=== PATIENT | male | born 1965 | race Caucasian/White ===

== ENCOUNTER 2020-02-04 17:47 | Outpatient (REF) | payer OTHER, SELFPAY | END 2020-02-04 17:48 | disposition home or self-care (01) | LOC: HO.LAB 17:47 | PROVIDERS: Visit Provider Internal Medicine | DX: Z20.828 Contact with and (suspected) exposure to other viral communicable diseases (principal) | CPT/HCPCS: U0003 ==

== ENCOUNTER 2020-11-24 17:14 | Outpatient (REF) | payer OTHER, SELFPAY ==
--- NOTE | ~2020-11-24 | XR_ITS ---
EXAMINATION: XR CHEST CLINICAL INFORMATION: Chronic cough. Asthma. COMPARISON: None TECHNIQUE: 2 views of the chest were obtained. FINDINGS: The lungs are clear. The cardiomediastinal silhouette is normal in size. There is no pleural effusion or pneumothorax. No acute osseous abnormality. XR/XR chest 2V IMPRESSION: No acute cardiopulmonary findings.
== END 2020-11-24 17:15 | disposition home or self-care (01) ==
LOC: HO.XRAY 17:14
PROVIDERS: PCP Internal Medicine Medical Oncology; Visit Provider Internal Medicine Medical Oncology
DX: R05 Cough (principal); R06.02 Shortness of breath; J45.909 Unspecified asthma, uncomplicated
CPT/HCPCS: 71046

== ENCOUNTER 2020-12-12 15:58 | Outpatient (REF) | payer OTHER, SELFPAY ==
--- NOTE | 2020-12-12 | PFT_ITS ---
INDICATIONS: Shortness of breath and cough. SPIROMETRY: The FEV1 to FVC of 85% with an FEV1 of 2.48 L, which is 74% predicted, and an FVC of 2.91 L, which is 67% predicted. No significant response to bronchodilators noted. Maximum voluntary ventilation 93% predicted. LUNG VOLUMES: Total lung capacity 67% predicted with an expiratory reserve volume of 34% predicted. DIFFUSION CAPACITY: DLCO 46% predicted. COMPARISONS: None. Post test, the patient did perform maneuvers with optimal efforts. He did have some difficulties with the maneuvers and some did not meet ATS criteria but still acceptable. IMPRESSION: No obstructive ventilatory defects identified. No significant response to bronchodilators noted. Normal maximum voluntary ventilation. However, the patient does have a mild restrictive ventilatory defect of unclear etiology. Need to consider underlying parenchymal lung conditions. In addition to that, there is a severe diffusion impairment, which could be secondary to underlying parenchymal lung conditions and/or pulmonary vascular conditions should be considered. Pulmonary consultation would be helpful, otherwise clinical correlation warranted. MD GARCIA Rabago/TYSON / [phone]
== END 2020-12-12 15:59 | disposition home or self-care (01) ==
LOC: HO.RESP 15:58
PROVIDERS: PCP Internal Medicine Medical Oncology; Visit Provider Internal Medicine Medical Oncology
DX: J45.909 Unspecified asthma, uncomplicated (principal)
CPT/HCPCS: 94060; 94727; 94729

== ENCOUNTER 2021-02-27 09:21 | Outpatient (REF) | payer OTHER, SELFPAY ==
[2021-02-27 09:38] LABS: MANUAL DIFF FLAG NO
[2021-02-27 09:47] LABS: Basophils Percent Auto 0.6 % (0-2); Eosinophils Absolute Auto 0.2 X10*3/uL (0.0-0.4); Eosinophils Percent Auto 2.9 % (0-4); Hemoglobin 15.9 g/dl (14.0-18.0); Imm Gran Abs Auto 0.02 X10*3/uL (0.00-0.03); Imm Gran Pct Auto 0.4 % (0.0-0.4); Lymphocytes Absolute Auto 1.3 X10*3/uL (1.2-4.9); Lymphocytes Percent Auto 24.5 % (20-40); Mean Corpuscular HGB Conc 33.8 g/dl (31.0-36.0); Mean Corpuscular Hemoglobin 30.4 pg (27.0-33.0); Mean Corpuscular Volume 89.9 fL (80.0-98.0); Mean Platelet Volume 8.5 fL (9.4-12.4); Monocytes Absolute Auto 0.5 X10*3/uL (0.1-1.2); Monocytes Percent Auto 9.8 % (2-11); Neutrophils Absolute Auto 3.4 x10*3/uL (2.0-8.3); Neutrophils Percent Auto 61.8 % (45-73); Platelet Count 208 X10*3/uL (160-400); Red Blood Count 5.23 X10*6/uL (4.60-5.80); Red Cell Distribution Width 12.3 % (11.0-16.0); White Blood Count 5.4 X10*3/uL (4.8-10.8)
[2021-02-27 10:28] LABS: Alanine Aminotransferase 34 U/L (0-40); Albumin Level 4.2 g/dL (3.5-5.0); Alkaline Phosphatase 47 U/L (39-117); Anion Gap 9 (12-20); Aspartate Amino Transferase 24 U/L (5-37); Bilirubin Total 0.5 mg/dL (0.0-1.0); Blood Urea Nitrogen 15 mg/dL (9-16); Carbon Dioxide 29 mmol/L (22-29); Chloride 103 mmol/L (96-108); Cholesterol 178 mg/dL; Estimated Glomerular Filt Rate > 60; Glucose Fasting 99 mg/dL (60-99); HDL Cholesterol 45 mg/dL; LDL Cholesterol Calculated 107 mg/dl; Potassium 4.8 mmol/L (3.3-5.1); Sodium 136 mmol/L (135-145); Total Protein 7.2 g/dL (6.5-8.0); Triglycerides 134 mg/dL
== END 2021-02-27 09:22 | disposition home or self-care (01) ==
LOC: HO.LAB 09:21
PROVIDERS: PCP Internal Medicine Medical Oncology; Visit Provider Internal Medicine Medical Oncology
DX: Z00.00 Encounter for general adult medical examination without abnormal findings (principal); E66.3 Overweight; N40.0 Benign prostatic hyperplasia without lower urinary tract symptoms
CPT/HCPCS: 36415; 80053; 80061; 85025

== ENCOUNTER → 2021-03-06 16:06 | Outpatient (BNVA) | payer OTHER, SELFPAY | PROVIDERS: PCP Internal Medicine Medical Oncology; Visit Provider Internal Medicine Pulmonary Disease ==

== ENCOUNTER 2021-03-19 14:48 | Outpatient (REF) | payer OTHER, SELFPAY ==
--- NOTE | ~2021-03-19 | CT_ITS ---
EXAMINATION: CT CHEST WITHOUT CONTRAST CLINICAL INFORMATION: Interstitial pulmonary disease COMPARISON: None TECHNIQUE: Multidetector volumetric CT imaging of the chest was done. Axial MIP volume rendering provided. Sagittal and coronal reformatted images were obtained. This CT examination was performed using dose optimization techniques as appropriate, variously including the following: *Automated exposure control *Adjustment of mA and/or kV according to patient size (this includes techniques or standardized protocols for targeted exams where dose is matched to indication/reason for exam; i.e. extremities or head) *Use of iterative reconstruction technique DLP: 179 mGy-cm FINDINGS: LOCK EXPERT: Unremarkable. LUNGS: The lungs are well expanded and clear of acute pneumonic process. There are punctate 1 mm calcified nodules, likely granulomas, scattered in bilateral upper lobe, lingula and left lower lobe. Mild atelectatic changes are seen left lower lobe. There is no bronchiectasis or bronchial wall thickening. No consolidation or mass seen. MEDIASTINUM: The thyroid lobes are symmetric and normal. The central trachea and the bronchi are widely patent. Heart size and the great vessels are normal caliber. There is no pericardial effusion seen. No abnormal lymph nodes seen either. PLEURA: There is no pleural effusion. No pleural mass or thickening. AXILLA: There are small shotty lymph nodes seen in the axilla. The chest wall appears unremarkable. UPPER ABDOMEN: There are at least 2 hypodense lesions in the left hepatic lobe largest lesion measuring 1.20 x 0.40 cm. The right hepatic lobe appears unremarkable. Visualized spleen, gallbladder and bilateral adrenal glands are unremarkable. OSSEOUS STRUCTURES: There is mild ventral spondylosis upper and lower dorsal spine. No lytic or sclerotic process seen. CT/CT chest wo con IMPRESSION: Multiple small calcified nodules throughout both lungs likely calcified granuloma. Minimal atelectatic changes left lung base. No interstitial lung disease visualized. No consolidation. No abnormal lymphadenopathy. Small hypodense left hepatic lobe lesions, too small to characterize.
== END 2021-03-19 14:49 | disposition home or self-care (01) ==
LOC: HO.CT 14:48
PROVIDERS: PCP Internal Medicine Medical Oncology; Visit Provider Internal Medicine Pulmonary Disease
DX: J84.9 Interstitial pulmonary disease, unspecified (principal)
CPT/HCPCS: 71250

== ENCOUNTER → 2021-04-19 10:19 | Outpatient (BNVA) | payer OTHER, SELFPAY | PROVIDERS: PCP Internal Medicine Medical Oncology; Visit Provider Internal Medicine Pulmonary Disease ==

== ENCOUNTER 2022-03-11 16:26 | Outpatient (REF) | payer OTHER, SELFPAY ==
--- NOTE | ~2022-03-11 | CT_ITS ---
EXAMINATION: CT CHEST WITHOUT CONTRAST CLINICAL INFORMATION: Pulmonary fibrosis. COMPARISON: CT chest 03/19/2021. TECHNIQUE: Multidetector volumetric CT imaging of the chest was done. Axial MIP volume rendering provided. Sagittal and coronal reformatted images were obtained. This CT examination was performed using dose optimization techniques as appropriate, variously including the following: *Automated exposure control *Adjustment of mA and/or kV according to patient size (this includes techniques or standardized protocols for targeted exams where dose is matched to indication/reason for exam; i.e. extremities or head) *Use of iterative reconstruction technique DLP: 176 mGy-cm FINDINGS: HELMET HAT BRIM CUTTER: Unremarkable. LUNGS: The lungs are well expanded and clear of acute pneumonic process. There are scattered 1-2 mm calcified nodules both upper lobes and lower lobes. Faint ground-glass attenuation is seen in the right lower lobe posterobasal and medial segments and left lower lobe posterior segment. The findings are new since the previous study. No acute consolidation seen. MEDIASTINUM: The thyroid lobes are symmetrical and normal. The central trachea and bronchi are widely patent. The heart size and the great vessels are normal caliber. There are small shotty lymph nodes in the pretracheal space. There is no pericardial effusion. CORONARY ARTERY CALCIFICATION: None visualized on this study. PLEURA: There is no pleural effusion. No pleural mass or thickening. AXILLA: Small shotty lymph nodes visualized in the axilla. The chest wall is a unremarkable. UPPER ABDOMEN: There are 2 hypodense lesions in the left hepatic lobe, the largest measuring 1.2 cm, probable cyst or hemangioma. The rest of the liver, spleen, pancreas, and bilateral adrenal glands are unremarkable. There are no radiopaque gallstones. OSSEOUS STRUCTURES: No aggressive lytic or sclerotic process seen. There is mild ventral spondylosis upper and mid dorsal spine. CT/CT chest wo IV con IMPRESSION: 1. Faint ground-glass attenuation in both lower lobes, new since the previous study, nonspecific. No evidence of pulmonary fibrosis on this exam 2. Scattered 1-2 mm calcified nodules are stable. 3. No abnormal mediastinal or axillary lymph nodes seen. 4. Small hypodense lesions left hepatic lobe, likely cyst or hemangioma. Fleischner guidelines were followed.
== END 2022-03-11 16:27 | disposition home or self-care (01) ==
LOC: HO.CT 16:26
PROVIDERS: Visit Provider Internal Medicine Pulmonary Disease
DX: J84.10 Pulmonary fibrosis, unspecified (principal)
CPT/HCPCS: 71250

== ENCOUNTER 2024-02-06 16:58 | Outpatient (REF) | payer OTHER, SELFPAY | END 2024-02-06 16:59 | disposition home or self-care (01) | LOC: HO.LNP 16:58 | PROVIDERS: Visit Provider Internal Medicine Medical Oncology | DX: L03.818 Cellulitis of other sites (principal) | CPT/HCPCS: 87070; 87205 ==

== ENCOUNTER 2024-07-09 14:47 | Outpatient (REF) | payer OTHER, SELFPAY ==
--- OUTSIDE RECORDS SUMMARY | 2024-07-09 17:06 | XMS_ITS ---
Author Organization Christian Acuña III, MD Address [address] [place] [address] Care Team Providers Care Appian Developer Name Role Phone Christian Acuña Primary Care Provider REASON FOR VISIT Colonoscopy Social History Sex Assigned At : Social History Observation Description Sex Assigned At Male Encounters Encounter Location Date Provider Diagnosis Christian Acuña III, MD [address] [place] [address] [place] [address] 06/09/2024 Christian Acuña Plan Of Treatment Next Appt Details Provider Name:Christian Acuña, 07/13/2024 04:15:00 PM, [address] [place] [address] [place], [address], Provider Name:Christian Acuña, 03/09/2025 04:00:00 PM, [address] [place] [address] [place], [address], Progress Notes * Zafar RANDALL RDOB:1964 (59 yo M)Acc No.[id number]:06/09/2024 Patient:?Zafar RANDALL :1965???Age:59 Y???Sex:Male Address:[address] [facility] [place], [address] * * Date:?
--- OUTSIDE RECORDS SUMMARY | 2024-07-09 17:06 | XMS_ITS ---
Author Organization Christian Acuña III, MD Address [address] [address] Care Team Providers Care Showroom Consultant Name Role Phone Christian Acuña Primary Care Provider Allergies Allergen (clinical drug ingredient) Drug/Non Drug Allergy documented on EMR Reaction Allergy Type Onset Date Status No Known Drug Allergy Unknown Drug Allergy Active Results Component Value Reference Range Notes URINE DIP STICK Reviewed date:03/08/2024 04:42:04 PM Interpretation: Performing Lab: Notes/Report: SG 1.015 1.005 - 1.025 pH 6.5 5.0 - 9.0 HOMERO Negative Negative - NIT Negative Negative - PRO 15 Negative - Trace GLU Negative Negative - UBG 0.2 0.1 - 1.8 SUNSHINE Negative 0.2 - 1.3 BLD Negative Negative - REASON FOR VISIT annual exam Medications Medication SIG (Take, Route, Frequency, Duration) Notes Start Date End Date Status Flonase 50 MCG/ACT 1 spray in each nost ril Nasally Once a day Active Albuterol Sulfate HFA 108 (90 Base) MCG/ACT 1 puff as needed Inhalation every 4 hrs Active Sildenafil Citrate 100 MG 1 tablet as ne eded Orally Once a day Active FLUoxetine HCl 20 MG TAKE 2 CAPSULES BY MOUTH EVERY DAY Active traZODone HCl 150 MG TAKE 1 TABLET BY [facility] EVERY DAY AT BEDTIME FOR 30 DAYS Active Social History Tobacco Use: Social History Observation Description Date Details (start date - stop date) Never Smoker NA - NA Sex Assigned At : Social History Observation Description Sex Assigned At Male Tobacco Use/Smoking Question Answer Notes Patient is a nonsmoker Additional Findings: Tobacco Non-User Aggressive non-smoker Tobacco Control (Standard) Question Answer Notes Tobacco use: Nonsmoker Additional Findings: Tobacco non-user Aggressive nonsmoker AUDIT-C (Standard) Question Answer Notes Did you have a drink contain ing alcohol in the past year? Yes How often did you have six o r more drinks on one occasion in the past year? 4 or more times a week (4 points) How many drinks did you have on a typical day when you were drinking in the past year? 1 or 2 drinks (0 point) How often did you have a dri nk containing alcohol in the past year? 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 He has had no depressive thinking or excessive thoughts. The disorder appears to be in remission at this time. 03/08/2024 Overweight (ICD-10 - E66.3) We have discussed his diet and nutrition. We have constructed a weight loss strategy to lose weight at a rate of one half of a pound per wweek through a diet restricted in fat calories and sodium combined with regular physical activity.His body mass index is 26.9 and he weighs 172 pounds. 03/08/2024 Attention deficit disorder (ADD) without hyperactivity (ICD-10 - F98.8) He is not being treated for this problem and it is inactive at this time and requires only observation. 03/08/2024 BPH (benign prostatic hyperplasia) (ICD-10 - N40.0) He rises from sleep once a night to urinate at times. We have discussed lifestyle modification as well as to reduce nocturnal urinating. 03/08/2024 Asthma, unspecified asthma severity, unspecified whether complicated, unspecified whether persistent (ICD-10 - J45.909) His asthma is stable and he will continue on current therapy.He has had no asthma attacks during the last year. He was free of wheezing today. 03/08/2024 Hordeolum externum of right lower eyelid (ICD-10 - H00.012) He has finished the antibiotic and the lesion is resolving. Plan Of Treatment Medication Medication Name Sig Start Date Stop Date Notes Flonase 50 MCG/ACT 1 spray in each nost ril Nasally Once a day Albuterol Sulfate HFA 108 (9 0 Base) MCG/ACT 1 puff as needed Inhalation every 4 hrs Sildenafil Citrate 100 MG 1 tablet as ne eded Orally Once a day FLUoxetine HCl 20 MG TAKE 2 CAPSULES BY MOUTH EVERY DAY traZODone HCl 150 MG TAKE 1 TABLET BY [facility] EVERY DAY AT BEDTIME FOR 30 DAYS Pending Test Test Name Order Date PROFILE, FASTING (COMPREHENSIVE METABOLI C) 03/08/2024 PSA, TOTAL 03/08/2024 CBC WITH AUTO DIFF 03/08/2024 Lipid Panel 03/08/2024 Next Appt Details Follow Up: 1 Year, 1 year, R vida: OV, Annual Exam, Annual Checkup Provider Name:Christian Acuña, 07/13/2024 04:15:00 PM, [address] [place] [address] [address], [place], [id number], Provider Name:Christian Acuña, 03/09/2025 04:00:00 PM, [address] [place] [address] [place], [address], Progress Notes * Zafar RANDALL RDOB:1964 (59 yo M)Acc No.[id number]:03/08/2024 Progress Notes Patient:?Zafar RANDALL Provider:?Christian Acuña MD :1965???Age:59 Y???Sex:Male Siva e:03/08/2024 Address: [address], [id number] Subjective: * Chief Complaints: * ???Annual exam * HPI: ???Depression Screening:?PHQ-9?Little interest or pleasure in doing things?Not at all ?Feeling down, depressed, or hopeless?Not at all ?Trouble falling or staying asleep, or sleeping too much?Not at all ?Feeling tired or having little energy?Not at all ?Poor appetite or overeating?Not at all ?Feeling bad about yourself or that you are a failure, or have let yourself or your family down?Not at all ?Trouble concentrating on things, such as reading the newspaper or watching television?Not at all ?Moving or speaking so slowly that other people could have noticed; or the opposite, being so fidgety or restless that you have been moving around a lot more than usual?Not at all ?Thoughts that you would be better off or of hurting yourself in some way?Not at all ?Total Score?0 ???COVID-19 Screening:?Questions?Have you experienced fever, chills, cough, sore throat, shortness of breath, difficulty breathing, muscle aches, loss of taste or smell??No ?Have you been exposed to the virus within the last 10 days??No ?Have you travelled internationally in the last 10 days??No ?Have you been exposed to COVID-19 in the past??Yes ???SDOH Questions:?SDOH Questions?In the past year have you been worried about losing your housing??No ?In the past year have you or any family members you live with been unable to get any of the following when it was really needed? Check all that apply:?None ???:?The patient, a 59-year-old male, presented for his annual exam. He reported no significant changes in his health since his last visit. He mentioned occasional feelings of anxiety but denied any depressive symptoms. He reported no issues with his breathing and denied any symptoms of asthma. He mentioned waking up once at night to urinate, which he attributed to his sleeping habits. He reported no significant pain or irritation from a previous skin condition, which appeared to be under control. He also mentioned occasional stiffness in his right knee. The patient reported a slight difficulty in hearing and suggested that he might need a new pair of glasses soon. He also reported occasional sciatic pain. He was recently treated for infected stye on his right lower eyelid.? At has improved substantially.? A culture grew no significant organisms. * ROS:?General/Constitutional:?Admits?pain,?Knees.?Chills?denies.?Fatigue?admits.?Fever?denies.?ENT:?Decreased hearing?denies.?Respiratory:?Cough?denies.?Cardiovascular:?Chest pain with exertion?denies.?Dyspnea on exertion?denies.?Shortness of breath?denies.?Gastrointestinal:?Constipation?occasional.?Decreased appetite?denies.?Diarrhea?denies.?Heartburn?occasional.?Nausea?denies.?Rectal bleeding?denies.?Vomiting?denies.?Hematology:?bruising?denies.?petechiae?denies.?Swollen glands?none have been noted.?Genitourinary:?Frequent urination?once a night.?Musculoskeletal:?Muscle aches?denies.?Painful joints?denies.?Sciatica?denies.?Weakness?denies.?Skin:?Itching?denies.?Rash?denies.?Skin lesion(s)?denies.?Neurologic:?Difficulty speaking?denies.?Dizziness?denies.?Headache?denies.?Low back pain?denies.?Psychiatric:?Depressed mood?denies.? * Medical History:? * Surgical History:?right knee arthroscopic surgery x2 1984 - 1988left knee arthroscopic surgery 1990colonoscopy, Dr. Christian Voss, [facility], negative, 10 years 2015Knee surgery No history * Hospitalization/Major Diagno stic Procedure:?major depression, Dr. Velarde 2001No history * Family History:?Father: allen strauss 90 yrs, Coronary artery disease, myocardial infarction, aortic valve replacement, carotid endarterectomy, peripheral arterial disease, prostate cancer, diagnosed with CVD, Cancer. Mother: alive 86 yrs, Breast cancer,, diagnosed with Cancer, HTN.?Paternal Grand Mother: , diagnosed with Cancer.?1 brother(s) , 3 sister(s) - healthy. 1 son(s) - healthy. .? A paternal grandmother had breast cancer. A paternal uncle of a stroke. He has one brother and 3 sisters and one son, all of whom are healthy and well. He has an autistic son. A maternal aunt committed suicide. He is not aware of any other family history of mental illness or substance use disorder or dissection. Mother had breast cancer. * Social History:?Tobacco Use:?Tobacco Use/Smoking?Patient is a?nonsmoker ?Additional Findings: Tobacco Non-User?Aggressive non-smoker ?Tobacco Control (Standard)?Tobacco use:?Nonsmoker ?Additional Findings: Tobacco non-user?Aggressive nonsmoker ???Drugs/Alcohol:?Drugs?Have you used drugs other than those for medical reasons in the past 12 months??No ???Miscellaneous:?Domestic violence: no. ?Marital status: . ???Drug/Alcohol:?AUDIT-C (Standard)?Did you have a drink containing alcohol in the past year??Yes ?How often did you have six or more drinks on one occasion in the past year??4 or more times a week (4 points) ?How many drinks did you have on a typical day when you were drinking in the past year??1 or 2 drinks (0 point) ?How often did you have a drink containing alcohol in the past year??Never (0 point) ?Points?4 ?Interpretation?Positive ???He was born in [place], [place]. He is a furniture salesperson. He works for a [employer] in [place], [place] that [employer]. He was trained as a gordillo and sometimes wore a mask to prevent inhaling dust or paint. He has been to Marta for 27 years. He has one son who is 21 years old. He lives in [place], [place]. {'Smoking': 'No', 'Alcohol': 'Occasional', 'Diet': 'Balanced', 'Exercise': 'Not mentioned', 'Work Environment': 'Furniture work', 'Living Situation': 'Not mentioned'}. * Medications:?TakingFlonase 5 0 MCG/ACT Suspension 1 spray in each nostril Nasally Once a day Albuterol Sulfate HFA 108 (90 Base) MCG/ACT Aerosol Solution 1 puff as needed Inhalation every 4 hrs Sildenafil Citrate 100 MG Tablet 1 tablet as needed Orally Once a day FLUoxetine HCl 20 MG Capsule TAKE 2 CAPSULES BY MOUTH EVERY DAY traZODone HCl 150 MG Tablet TAKE 1 TABLET BY MOUTH EVERY DAY AT BEDTIME FOR 30 DAYS Taking Flonase 50 MCG/ACT Suspension 1 spray in each nostril Nasally Once a day Taking Albuterol Sulfate HFA 108 (90 Base) MCG/ACT Aerosol Solution 1 puff as needed Inhalation every 4 hrs Taking Sildenafil Citrate 100 MG Tablet 1 tablet as needed Orally Once a day Taking FLUoxetine HCl 20 MG Capsule TAKE 2 CAPSULES BY MOUTH EVERY DAY Taking traZODone HCl 150 MG Tablet TAKE 1 TABLET BY MOUTH EVERY DAY AT BEDTIME FOR 30 DAYS DiscontinuedCiprofloxacin HCl 500 MG Tablet 1 tablet Orally every 12 hrs Medication List reviewed and reconciled with the patientDiscontinued Ciprofloxacin HCl 500 MG Tablet 1 tablet Orally every 12 hrs Medication List reviewed and reconciled with the patient * Allergies:?No Known Drug All ergyno[Allergies Verified] Objective: * Vitals:?Ht: 67, Wt: 172, BMI :26.94, BP: 144/79, HR: 62, Temp: 97.8, Ht-cm: 170.18, Wt-k.02. * ???Past Orders: Lab:URINE DIP STICK * Collection Date 03/08/2024 03/03/2023 02/25/2022 Order Date 03/08/2024 03/03/2023 02/25/2022 Result: Normal SG 1.015 (Ref Range: 1.005 - 1.025) 1.010 (Ref Range: 1.005 - 1.025) 1.025 pH 6.5 (Ref Range: 5.0 - 9.0) 5.0 (Ref Range: 5.0 - 9.0) 5 HOMERO Negative (Ref Range: Negative -) Negative (Ref Range: Negative -) neg NIT Negative (Ref Range: Negative -) Negative (Ref Range: Negative -) neg PRO 15 (Ref Range: Negative - Trace) 15 (Ref Range: Negative - Trace) trace GLU Negative (Ref Range: Negative -) Negative (Ref Range: Negative -) normal KET NR Negative (Ref Range: Negative -) neg UBG 0.2 (Ref Range: 0.1 - 1.8) 0.2 (Ref Range: 0.1 - 1.8) neg SUNSHINE Negative (Ref Range: 0.2 - 1.3) Negative (Ref Range: 0.2 - 1.3) neg BLD Negative (Ref Range: Negative -) Negative (Ref Range: Negative -) neg Menstrating NR N/A neg * Examination: ???General Examination: ?GENERAL APPEARANCE:?pleasant, well nourished, well developed, in no acute distress, calm and relaxed, overweight, man.?HEAD:?atraumatic, normocephalic.?EYES:?eomi, perrla, anicteric, conjugate, resolving right lower eyelid.?EARS:?normal.?NOSE:?septum intact.?ORAL CAVITY:?normal, unremarkable.?NECK/THYROID:?no jugular venous distention, no carotid bruit, thyroid normal.?LYMPH NODES:?no enlarged lymph nodes,spleen normal.?SKIN:?no suspicious lesions, anicteric.?HEART:?no clicks, gallops, murmurs, or rubs, regular rhythm, S1, S2 normal, no s3, or vascular bruits.?LUNGS:?clear to auscultation .?BREASTS:??no masses palpable bilaterally.?ABDOMEN:?bowel sounds normal, no ascites, no organomegaly, no mass, overweight.?RECTAL EXAM:?, no external hemorrhoids, no masses palpable, no melena, prostate normal, stool guaiac negative.?MUSCULOSKELETAL:?extremities unremarkable, no clubbing, cyanosis or edema.?PERIPHERAL PULSES:?normal.?NEUROLOGIC:?alert and oriented, cranial nerves 2-12 grossly intact, deep tendon reflexes 2+ symmetrical, motor strength normal upper and lower extremities, sensory exam intact.?PSYCH:?alert, oriented, mood depressed.? : ???{'Prostate Check':'Normal', 'Liver Check': 'Normal', 'Gallbladder Check': 'Normal', 'Sigma Colon Check': 'Normal', 'Knee Check': 'Normal'}. ??? Assessment: * Assessment: 1.?Major depressive disorder in partial remission, unspecified whether recurrent - F32.4 (Primary)???Notes :He did not seem depressed today. He has had no depressive thinking or excessive thoughts. The disorder appears to be in remission at this time.???2.?Overweight - E66.3???Notes :We have discussed his diet and nutrition. We have constructed a weight loss strategy to lose weight at a rate of one half of a pound per wweek through a diet restricted in fat calories and sodium combined with regular physical activity.His body mass index is 26.9 and he weighs 172 pounds.???3.?Attention deficit disorder (ADD) without hyperactivity - F98.8???Notes :He is not being treated for this problem and it is inactive at this time and requires only observation.???4.?BPH (benign prostatic hyperplasia) - N40.0???Notes :He rises from sleep once a night to urinate at times. We have discussed lifestyle modification as well as to reduce nocturnal urinating.???5.?Asthma, unspecified asthma severity, unspecified whether complicated, unspecified whether persistent - J45.909???Notes :His asthma is stable and he will continue on current therapy.He has had no asthma attacks during the last year. He was free of wheezing today.???6.?Hordeolum externum of right lower eyelid - H00.012???Notes :He has finished the antibiotic and the lesion is resolving.??? Plan: * Treatment: * Labs:? * ?Lab: PROFILE, FASTING ( COMPREHENSIVE METABOLIC) ?Lab: PSA, TOTAL ?Lab: CBC WITH AUTO DIFF ?Lab: Lipid Panel ?Lab: URINE DIP STICK (C ollection Date & Time - 03/08/2024) ? Value Reference Range ?SG 1.015 1.005 - 1.025 * ?pH 6.5 5.0 - 9.0 * ?HOMERO Negative Negative - * ?NIT Negative Negative - * ?PRO 15 Negative - Trac e * ?GLU Negative Negative - * ?UBG 0.2 0.1 - 1.8 * ?SUNSHINE Negative 0.2 - 1.3 * ?BLD Negative Negative - * Procedure Codes:?29854 URINE -NO MICRO * Preventive Medicine:? ??Counseling:?Care goal follow-up plan:?Counseling for abnormal BMI given?Yes ?Above Normal BMI Follow-up?Dietary management education, guidance, and counseling, Dietary needs education, Exercise promotion: strength training, Exercise promotion: stretching, Feeding regime, Giving encouragement to exercise, Lifestyle education regarding diet, Nutrition / feeding management, Nutrition therapy, Prescribed activity/exercise education, Prescribed diet education, Prescribed dietary intake, Special diet education, Weight monitoring , Intervention, Order not done: Medical or Other reason not done * Follow Up:?1 Year, 1 year (Caren mcpherson: OV, Annual Exam, Annual Checkup) * Images: * Sign off status: Completed true * Provider:?Christian Acuña MD Date:?05/2023 Generated for Tierney hernandez/Anaid/eTransmitting on:?07/09/2024 05:05 PM EDT History and Physical Notes * HPI (History of Present Illness) Category Sub-Category Detail Notes Depression Screening PHQ-9 Little inte rest or pleasure in doing things: Not at all Feeling down, depressed, or hopeless: No t at all Trouble falling or staying asleep, or sl eeping too much: Not at all Feeling tired or having little energy: N ot at all Poor appetite or overeating: Not at all Feeling bad about yourself o r that you are a failure, or have let yourself or your family down: Not at all Trouble concentrating on thi ngs, such as reading the newspaper or watching television: Not at all Moving or speaking so slowly that other people could have noticed; or the opposite, being so fidgety or restless that you have been moving around a lot more than usual: Not at all Thoughts that you would be b estefani off or of hurting yourself in some way: Not at all Total Score: 0 COVID-19 Screening Questions Have you had any new onset fever, chills, cough, congestion, sore throat, shortness of breath, muscle aches?: No Have you been exposed to the virus with n the last 10 days?: No Have you travelled internationally in [facility] last 10 days?: No Have you been exposed to COVID-19 in the past?: Yes SDOH Questions SDOH Questions In the past year have you been worried about losing your housing?: No In the past year have you or any family members you live with been unable to get any of the following when it was really needed? Check all that apply:: None Examination Category Sub-Category Detail Notes General Examination GENERAL APPEARANCE: pleasant , well nourished, well developed, in no acute distress, calm and relaxed, overweight, man HEAD: atraumatic, normocep halic EYES: eomi, perrla, anicte herbert, conjugate, resolving right lower eyelid EARS: normal NOSE: septum intact NECK/THYROID: no jugular venous di stention, no carotid bruit, thyroid normal HEART: no clicks, gallops, murmurs, or rubs, regular rhythm, S1, S2 normal, no s3, or vascular bruits LUNGS: clear to auscultatio n ABDOMEN: bowel sounds normal, no ascites, no organomegaly, no mass, overweight NEUROLOGIC: alert and oriented, cranial nerves 2-12 grossly intact, deep tendon reflexes 2+ symmetrical, motor strength normal upper and lower extremities, sensory exam intact SKIN: no suspicious lesion s, anicteric PERIPHERAL PULSES: normal BREASTS: no masses palpable b ilaterally MUSCULOSKELETAL: extremities unremark able, no clubbing, cyanosis or edema LYMPH NODES: no enlarged lymph no vita,spleen normal RECTAL EXAM: , no external hemorr hoids, no masses palpable, no melena, prostate normal, stool guaiac negative PSYCH: alert, oriented, moo d depressed ORAL CAVITY: normal, unremarkable
--- OUTSIDE RECORDS SUMMARY | 2024-07-09 17:06 | XMS_ITS ---
Author Organization Christian Acuña III, MD Address [address] [place] [address] Care Team Providers Care Deputy Sheriff Generalist/Bailiff Name Role Phone Christian Acuña Primary Care Provider Allergies Allergen (clinical drug ingredient) Drug/Non Drug Allergy documented on EMR Reaction Allergy Type Onset Date Status No Known Drug Allergy Unknown Drug Allergy Active REASON FOR VISIT right eye sty Medications Medication SIG (Take, Route, Frequency, Duration) Notes Start Date End Date Status traZODone HCl 150 MG TAKE 1 TABLET BY [facility] EVERYDAY AT BEDTIME for 90 Active FLUoxetine HCl 20 MG TAKE 2 CAPSULES BY MOUTH EVERY DAY for 90 Active Sildenafil Citrate 100 MG 1 tablet as ne eded Orally Once a day Active Flonase 50 MCG/ACT 1 spray in each nost ril Nasally Once a day Active Albuterol Sulfate HFA 108 (90 Base) MCG/ACT 1 puff as needed Inhalation every 4 hrs Active Ciprofloxacin HCl 500 MG 1 tablet Orally twice a day for 10 days 07/09/2024 07/29/2024 Active Social History Tobacco Use: Social History Observation Description Date Details (start date - stop date) Never Smoker NA - NA Sex Assigned At : Social History Observation Description Sex Assigned At Male Tobacco Use/Smoking Question Answer Notes Patient is a nonsmoker Additional Findings: Tobacco Non-User Aggressive non-smoker Tobacco Control (Standard) Question Answer Notes Tobacco use: Nonsmoker Additional Findings: Tobacco non-user Aggressive nonsmoker Vital Signs Temperature 98.3 degrees Fahrenheit 07/10/19 25 Blood pressure systolic 140 mm Hg 07/10/19 25 Blood pressure diastolic 80 mm Hg 025 Heart Rate 60 /min 07/09/2024 Height 67 in 07/09/2024 Weight 171 lbs 07/09/2024 BMI 26.78 kg/m2 07/09/2024 Encounters Encounter Location Date Provider Diagnosis Christian Acuña III, MD [address] [place] [address] [place] [address] 07/09/2024 Christian Acuña Hordeolum externum right eye, unspecified eyelid H00.013 Assessments Encounter Date Diagnosis (ICD Code) Assessment Notes Treat ment Notes Treatment Clinical Notes 07/09/2024 Hordeolum externum right eye, unspecified eyelid (ICD-10 - H00.013) Plan Of Treatment Medication Medication Name Sig Start Date Stop Date Notes Ciprofloxacin HCl 500 MG 1 tablet Orally twice a day for 10 days 07/09/2024 07/29/2024 Pending Test Test Name Order Date Routine Culture 07/09/2024 Next Appt Details Follow Up: 2 - 3 Days, Reaso n: Telehealth Provider Name:Christian Acuña, 07/13/2024 04:15:00 PM, [address] [place] [address] [address], [place], [address], Provider Name:Christian Acuña, 03/09/2025 04:00:00 PM, [address] [place] [address] [address], [place], [address], Progress Notes * Zafar RANDALL RDOB:1964 (59 yo M)Acc No.[id number]:07/09/2024 Progress Notes Patient:?Zafar RANDALL Provider:?Christian Acuña MD :1965???Age:59 Y???Sex:Male Siva e:07/09/2024 Address:[address] [place] [id number] Subjective: * Chief Complaints: * ???1. Right eye sty. * HPI: ???COVID-19 Screening:?had r eye? before, noct x 1, left elbow hurts a olot. ?Questions?Have you had any new onset fever, chills, cough, congestion, sore throat, shortness of breath, muscle aches??No * ROS:?General/Constitutional:?pain?only normal aches and pains.?Chills?denies.?Fatigue?admits.?Fever?denies.?ENT:?Decreased hearing?denies.?Respiratory:?Cough?denies.?Cardiovascular:?Chest pain with exertion?denies.?Dyspnea on exertion?denies.?Shortness of breath?denies.?Gastrointestinal:?Constipation?denies.?Decreased appetite?denies.?Diarrhea?denies.?Heartburn?denies.?Nausea?denies.?Rectal bleeding?denies.?Vomiting?denies.?Hematology:?bruising?denies.?petechiae?denies.?Swollen glands?none have been noted.?Genitourinary:?Frequent urination?denies.?Musculoskeletal:?Muscle aches?denies.?Painful joints?denies.?Sciatica?denies.?Weakness?denies.?Skin:?Itching?denies.?Rash?denies.?Skin lesion(s)?denies.?Neurologic:?Difficulty speaking?denies.?Dizziness?denies.?Headache?denies.?Low back pain?denies.?Psychiatric:?Depressed mood?denies.? * Medical History:?Lumbar disc disease, Headaches, frontal, Attention deficit disorder, Major depressive disorder. 2001, Erectile dysfunction, Osteoarthritis of both knees, Overweight, Family history of breast cancer, Vertigo, 2015 a right epicondylitis, Cerumen impaction, Patient has a history of knee surgery., {'Anxiety': 'Occasional', 'Asthma': 'No', 'Skin Condition': 'Under control', 'Knee Stiffness': 'Occasional', 'Hearing Difficulty': 'Slight', 'Sciatic Pain': 'Occasional'}. * Surgical History:?right knee arthroscopic surgery x2 1984 - 1988, left knee arthroscopic surgery 1990, colonoscopy, Dr. Christian Voss, [facility], negative, 10 years 2015, Knee surgery , No history . * Hospitalization/Major Diagno stic Procedure:?major depression, Dr. Velarde 2000, No history . * Family History:?Father: allen strauss 90 yrs, Coronary artery disease, myocardial infarction, aortic valve replacement, carotid endarterectomy, peripheral arterial disease, prostate cancer, diagnosed with CVD, Cancer. Mother: alive 86 yrs, Breast cancer,, diagnosed with HTN, Cancer.?Paternal Grand Mother: , diagnosed with Cancer.?1 brother(s) [...] (Standard)?Tobacco use:?Nonsmoker ?Additional Findings: Tobacco non-user?Aggressive nonsmoker ???He was born in [place], [place]. 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 He has been to Marta for 27 years. He has one son who is 21 years old. He lives in [place], [place]. {'Smoking': 'No', 'Alcohol': 'Occasional', 'Diet': 'Balanced', 'Exercise': 'Not mentioned', 'Work Environment': 'Furniture work', 'Living Situation': 'Not mentioned'}. * Medications:?Taking Flonase 50 MCG/ACT Suspension 1 spray in each nostril Nasally Once a day , Taking Albuterol Sulfate HFA 108 (90 Base) MCG/ACT Aerosol Solution 1 puff as needed Inhalation every 4 hrs , Taking Sildenafil Citrate 100 MG Tablet 1 tablet as needed Orally Once a day , Taking traZODone HCl 150 MG Tablet TAKE 1 TABLET BY MOUTH EVERYDAY AT BEDTIME , Taking FLUoxetine HCl 20 MG Capsule TAKE 2 CAPSULES BY MOUTH EVERY DAY * Allergies:?No Known Drug All ergy. Objective: * Vitals:?Ht: 67, Wt: 171, BMI :26.78, BP: 140/80, HR: 60, Temp: 98.3, Ht-cm: 170.18, Wt-k.56. * Examination: ???General Examination: ?GENERAL APPEARANCE:?pleasant, well nourished, well developed, in no acute distress, calm and relaxed.?HEAD:?atraumatic, normocephalic.?EYES:?eomi, perrla, anicteric, conjugate.?EARS:?normal.?NOSE:?septum intact.?ORAL CAVITY:?normal, unremarkable.?NECK/THYROID:?no jugular venous distention, no carotid bruit, thyroid normal.?LYMPH NODES:?no enlarged lymph nodes,spleen normal.?SKIN:?no suspicious lesions, anicteric.?HEART:?no clicks, gallops, murmurs, or rubs, regular rhythm, S1, S2 normal, no s3, or vascular bruits.?LUNGS:?clear to auscultation .?BREASTS:??no masses palpable bilaterally.?ABDOMEN:?bowel sounds normal, no ascites, no organomegaly, no mass.?RECTAL EXAM:?not examined.?MUSCULOSKELETAL:?extremities unremarkable, no clubbing, cyanosis or edema.?PERIPHERAL PULSES:?normal.?NEUROLOGIC:?alert and oriented, cranial nerves 2-12 grossly intact, deep tendon reflexes 2+ symmetrical, motor strength normal upper and lower extremities, sensory exam intact.?PSYCH:?alert, oriented.? Assessment: * Assessment: 1.?Hordeolum externum right eye, unspecified eyelid - H00.013??? Plan: * Treatment: 2.?Others? Start Ciprofloxacin HCl Tablet, 500 MG, 1 tablet, Orally, twice a day, 10 days, 20 Tablet, Refills 1.?? * Preventive Medicine:? ??Counseling:?Care goal follow-up plan:?Counseling [...] or Other reason not done * Follow Up:?2 - 3 Days (Reaso n: Telehealth) * Images: * The named appointment provid er may or may not be the originator of this progress note, and it is not deemed complete until electronically signed by the appointment provider. Sign off status: Pending * Provider:?Christian Acuña MD Date:?07/2024 Generated for Tierney hernandez/Anaid/Catsmitting on:?07/09/2024 05:06 PM EDT History and Physical Notes * HPI (History of Present Illness) Category Sub-Category Detail Notes COVID-19 Screening Questions Have you had any new onset fever, chills, cough, congestion, sore throat, shortness of breath, muscle aches?: No Examination Category Sub-Category Detail Notes General Examination GENERAL APPEARANCE: pleasant , well nourished, well developed, in no acute distress, calm and relaxed HEAD: atraumatic, normocep halic EYES: eomi, perrla, anicte herbert, conjugate EARS: normal NOSE: septum intact NECK/THYROID: no jugular venous di stention, no carotid bruit, thyroid normal HEART: no clicks, gallops, murmurs, or rubs, regular rhythm, S1, S2 normal, no s3, or vascular bruits LUNGS: clear to auscultatio n ABDOMEN: bowel sounds normal, no ascites, no organomegaly, no mass NEUROLOGIC: alert and oriented, cranial nerves 2-12 grossly intact, deep tendon reflexes 2+ symmetrical, motor strength normal upper and lower extremities, sensory exam intact SKIN: no suspicious lesion s, anicteric PERIPHERAL PULSES: normal BREASTS: no masses palpable b ilaterally MUSCULOSKELETAL: extremities unremark able, no clubbing, cyanosis or edema LYMPH NODES: no enlarged lymph no vita,spleen normal RECTAL EXAM: not examined PSYCH: alert, oriented ORAL CAVITY: normal, unremarkable
--- OUTSIDE RECORDS SUMMARY | 2024-07-09 17:06 | XMS_ITS | Patient Health Record ---
Author Organization Christian Acuña III, MD Address [address] [place] [address] Care Team Providers Care Wood Web Weaving Machine Operator Name Role Phone Christian Acuña Primary Care Provider Allergies Allergen (clinical drug ingredient) Drug/Non Drug Allergy documented on EMR Reaction Allergy Type Onset Date Status No Known Drug Allergy Unknown Drug Allergy Active Results Component Value Reference Range Notes Routine Culture Reviewed date:03/31/2024 08:48:38 AM Interpretation: Performing Lab:[facility], [address] [place] [id number] Notes/Report: EYE LIDE Routine Culture No growth after 2 days URINE DIP STICK Reviewed date:03/08/2024 04:42:04 PM Interpretation: Performing Lab: Notes/Report: SG 1.015 1.005 - 1.025 pH 6.5 5.0 - 9.0 HOMERO Negative Negative - NIT Negative Negative - PRO 15 Negative - Trace GLU Negative Negative - UBG 0.2 0.1 - 1.8 SUNSHINE Negative 0.2 - 1.3 BLD Negative Negative - Gram stain Reviewed date:03/31/2024 08:48:38 AM Interpretation: Performing Lab:[address] [address] Notes/Report: EYE LIDE Gram stain Gram stain results: Gram stain No polys Gram stain 1+ epithelial cells Gram stain No organisms seen Reason For Referral No Information Medications Medication SIG (Take, Route, Frequency, Duration) Notes Start Date End Date Status traZODone HCl 150 MG TAKE 1 TABLET BY [facility] EVERYDAY AT BEDTIME for 90 Active FLUoxetine HCl 20 MG TAKE 2 CAPSULES BY MOUTH EVERY DAY for 90 Active Sildenafil Citrate 100 MG 1 tablet as ne eded Orally Once a day Active Flonase 50 MCG/ACT 1 spray in each nost ril Nasally Once a day Active Ciprofloxacin HCl 500 MG 1 tablet Orally twice a day for 10 days 07/09/2024 07/29/2024 Active Albuterol Sulfate HFA 108 (90 Base) MCG/ACT 1 puff as needed Inhalation every 4 hrs Active Immunizations Vaccine Route Administration Date Status Comme nts Influenza no Preserv 3 and > Unknown 01/27/2020 Adminis tered Tetanus and Diphtheria Toxoi ds Adsorbed Unknown 03/17/2020 Administered Td (adult) Unknown 09/11/2012 Administered COVID 19 Dede Unknown 07/15/2020 Administered COVID 19 Moderna Unknown 03/11/2021 Administered COVID Moderna Bivalent Unknown 03/24/2022 Administered Influenza, quad Unknown 03/24/2022 Administered COVID-19 Comirnaty Pfizer-BioNTech Unknown 12/05/2023 A dministered Influenza no Preserv 3 and > Unknown 12/05/2023 Adminis tered Social History Tobacco Use: Social History Observation [...] Never (0 point) Points 4 Interpretation Positive Problems Problem Type SNOMED Code ICD Code Onset Dates Problem Status W/U Status Risk Notes Problem 097886886 Family history of breast cancer (Z80.3) Active confirmed Problem 823018750 Overweight (E66.3) Active confirmed We have discussed his diet and nutrition. We have constructed a weight loss strategy to lose weight at a rate of one half of a pound per wweek through a diet restricted in fat calories and sodium combined with regular physical activity.His body mass index is 26.9 and he weighs 172 pounds. Problem Primary generalised osteoarthritis (307074274) Primary osteoarthritis, unspecified site (M19.91) Active confirmed He will continue to use the right arm to stay active. He will notify me if any of his symptoms intensify.He will return to the office if the right shoulder pain intensifies. Problem Benign prostatic hyperplasia (480361041) BPH (benign prostatic hyperplasia) (N40.0) Active confirmed He rises from sleep once a night to urinate at times. We have discussed lifestyle modification as well as to reduce nocturnal urinating. Problem Erectile dysfunction (disorder) (203670000) Erectile dysfunction, unspecified erectile dysfunction type (N52.9) Active confirmed He will continue on current therapy which is working well. Problem 306783842 Vertigo (R42) Active confirmed Problem 26346591 Bilateral impacted cerumen (H61.23) Active confirmed Problem 76583348 Spondylosis of lumbar region without myelopathy or radiculopathy (M47.816) Active confirmed His low back pain is present but mild and he will continue on current therapy. He has no issues with ambulation. 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 Problem 064961215 Asthma, unspecified asthma severity, unspecified whether complicated, unspecified whether persistent (J45.909) Active confirmed His asthma is stable and he will continue on current therapy.He has had no asthma attacks during the last year. He was free of wheezing today. Problem 94538227 Major depressive disorder in partial remission, unspecified whether recurrent (F32.4) Active confirmed He did not seem depressed today. He has had no depressive thinking or excessive thoughts. The disorder appears to be in remission at this time. Vital Signs Heart Rate 60 /min 07/09/2024 Temperature 98.3 degrees Fahrenheit 07/09/2024 Blood pressure diastolic 80 mm Hg 07/09/2024 Height 67 in 07/09/2024 Blood pressure systolic 140 mm Hg 07/09/2024 Weight 171 lbs 07/09/2024 BMI 26.78 kg/m2 07/09/2024 Encounters Encounter Location Date Provider Diagnosis Christian Acuña III, MD [address] [place] [address] [place] [address] 07/09/2024 Christian Acuña Hordeolum externum right eye, unspecified eyelid H00.013 Christian Acuña III, MD [address] [place] [address] [place] [address] 02/06/2024 Christian Acuña Blepharitis of right lower eyelid, unspecified type H01.002 ; Major depressive disorder in partial remission, unspecified whether recurrent F32.4 ; Overweight E66.3 ; Asthma, unspecified asthma severity, unspecified whether complicated, unspecified whether persistent J45.909 ; Attention deficit disorder (ADD) without hyperactivity F98.8 ; Foreign body of right heel S90.851A and Pain, joint, knee, right M25.561 Christian Acuña III, MD [address] [place] [address] [place] [address] 2024 Christian Acuña Acute blepharitis H01.009 ; Major depressive disorder in partial remission, unspecified whether recurrent F32.4 ; Spondylosis of lumbar region without myelopathy or radiculopathy M47.816 ; Attention deficit disorder (ADD) without hyperactivity F98.8 and Overweight E66.3 Christian Acuña III, MD [address] [place] [address] [place] [address] 03/08/2024 Christian Acuña Major depressive disorder in partial remission, unspecified whether recurrent F32.4 ; Overweight E66.3 ; Attention deficit disorder (ADD) without hyperactivity F98.8 ; BPH (benign prostatic hyperplasia) N40.0 ; Asthma, unspecified asthma severity, unspecified whether complicated, unspecified whether persistent J45.909 and Hordeolum externum of right lower eyelid H00.012 Christian Acuña III, MD [address] [place] [address] [place] [address] 06/09/2024 Christian Acuña III, MD [address] [place] [address] [place] [address] 02/13/2024 Christian Acuña Assessments Encounter Date Diagnosis (ICD Code) Assessment Notes Treat ment Notes Treatment Clinical Notes 07/09/2024 Hordeolum externum right eye, unspecified eyelid (ICD-10 - H00.013) 02/06/2024 Major depressive disorder in partial remission, unspecified whether recurrent (ICD-10 - F32.4) He did not seem depressed today. He has had no depressive thinking or excessive thoughts. The disorder appears to be in remission at this time. 02/06/2024 Blepharitis of right lower eyelid, unspecified type (ICD-10 - H01.002) Right llower eyelid is entirely thickened and sswollen and erythematous with a crusted discharge. A culture was done. He was given a prescription for levofloxacin. 2024 Major depressive disorder in partial remission, unspecified whether recurrent (ICD-10 - F32.4) He did not seem depressed today. He has had no depressive thinking or excessive thoughts. The disorder appears to be in remission at this time. 2024 Acute blepharitis (ICD-10 - H01.009) He says her pain is gone which is an improvement. He will continue and finish the antibiotic and follow-up in the office. He reports no abnormality in the acuity of the vision of either eye. 03/08/2024 Overweight (ICD-10 - E66.3) We have discussed his diet and nutrition. We have constructed a weight loss strategy to lose weight at a rate of one half of a pound per wweek through a diet restricted in fat calories and sodium combined with regular physical activity.His body mass index is 26.9 and he weighs 172 pounds. 03/08/2024 Major depressive disorder in partial remission, unspecified whether recurrent (ICD-10 - F32.4) He did not seem depressed today. He has had no depressive thinking or excessive thoughts. The disorder appears to be in remission at this time. 02/06/2024 Overweight (ICD-10 - E66.3) We have discussed his diet and nutrition. We have constructed a weight loss strategy to lose weight at a rate of one half of a pound per wweek through a diet restricted in fat calories and sodium combined with regular physical activity. 2024 Spondylosis of lumbar region without myelopathy or radiculopathy (ICD-10 - M47.816) His low back pain is present but mild and he will continue on current therapy. He has no issues with ambulation. 03/08/2024 Attention deficit disorder (ADD) without hyperactivity (ICD-10 - F98.8) He is not being treated for this problem and it is inactive at this time and requires only observation. 02/06/2024 Asthma, unspecified asthma severity, unspecified whether complicated, unspecified whether persistent (ICD-10 - J45.909) His asthma is stable and he will continue on current therapy.He has had no asthma attacks during the last year. He was free of wheezing today. 2024 Attention deficit disorder (ADD) without hyperactivity (ICD-10 - F98.8) He is not being treated for this problem and it is inactive at this time and requires only observation. 03/08/2024 BPH (benign prostatic hyperplasia) (ICD-10 - N40.0) He rises from sleep once a night to urinate at times. We have discussed lifestyle modification as well as to reduce nocturnal urinating. 02/06/2024 Attention deficit disorder (ADD) without hyperactivity (ICD-10 - F98.8) He is not being treated for this problem and it is inactive at this time and requires only observation. 2024 Overweight (ICD-10 - E66.3) We have discussed his diet and nutrition. We have constructed a weight loss strategy to lose weight at a rate of one half of a pound per wweek through a diet restricted in fat calories and sodium combined with regular physical activity. 03/08/2024 Asthma, unspecified asthma severity, unspecified whether complicated, unspecified whether persistent (ICD-10 - J45.909) His asthma is stable and he will continue on current therapy.He has had no asthma attacks during the last year. He was free of wheezing today. 02/06/2024 Foreign body of right heel (ICD-10 - S90.851A) This was removed careffully after injection of 1% lidocaine. It was a 3 mm wooden splinter 03/08/2024 Hordeolum externum of right lower eyelid (ICD-10 - H00.012) He has finished the antibiotic and the lesion is resolving. 02/06/2024 Pain, joint, knee, right (ICD-10 - M25.561) The range of motion of the right knee was unremarkable and there was no crepitus or effusion. He will rest the joint and use heat and ibuprofen. If it does not resolve he will be seen in orrthopedic clinic. Plan Of Treatment Pending Test Test Name Order Date PROFILE, FASTING (COMPREHENSIVE METABOLI C) 02/16/2019 PROFILE, FASTING (COMPREHENSIVE METABOLI C) 03/03/2023 PROFILE, FASTING (COMPREHENSIVE METABOLI C) 2018 PROFILE, FASTING (COMPREHENSIVE METABOLI C) 02/25/2022 PROFILE, FASTING (COMPREHENSIVE METABOLI C) 02/20/2021 PROFILE, FASTING (COMPREHENSIVE METABOLI C) 08/17/2019 PROFILE, FASTING (COMPREHENSIVE METABOLI C) 03/08/2024 LIPID PANEL 02/20/2021 LIPID PANEL 08/17/2019 LIPID PANEL 02/16/2019 LIPID PANEL 2018 LIPID PANEL 02/25/2022 PSA, TOTAL 03/08/2024 PSA, TOTAL 08/17/2019 PSA, TOTAL 03/03/2023 PSA, TOTAL 02/16/2019 PSA, TOTAL 2018 PSA, TOTAL 02/25/2022 CBC w DIFF 02/20/2021 CBC w DIFF 08/17/2019 CBC w DIFF 02/16/2019 CBC w DIFF 2018 CBC w DIFF 02/25/2022 SCREENING COLONOSCOPY 12/09/2014 PFT with DLCO 11/22/2020 CBC WITH AUTO DIFF 03/08/2024 CBC WITH AUTO DIFF 03/03/2023 SARS COV2 RNA RT PCR 02/04/2020 Lipid Panel 03/08/2024 Lipid Panel 03/03/2023 Routine Culture 07/09/2024 Next Appt Details Provider Name:Christian Acuña, 07/13/2024 04:15:00 PM, [address] [place] [address] [address], [place], [address], Provider Name:Christian Acuña, 03/09/2025 04:00:00 PM, [facility] [address], [place], [address], Insurance Providers Payer Name Payer Address Payer Phone Subscriber Number Group Number Insured Name Patient Relationship to Insured Coverage Start Date Coverage End Date [address] [facility] [place] [phone] [id number] Zafar Randall Self - patient is the insured Medical (General) History Medical History History ICD Code Lumbar disc disease M51.9 Headaches, frontal attention deficit disorder major depressive disorder. 2000 erectile dysfunction osteoarthritis of both knees overweight family history of breast cancer vertigo 2015 a right epicondylitis cerumen impaction Patient has a history of knee surgery. {'Anxiety': 'Occasional', 'A sthma': 'No', 'Skin Condition': 'Under control', 'Knee Stiffness': 'Occasional', 'Hearing Difficulty': 'Slight', 'Sciatic Pain': 'Occasional'} Surgical History Surgery Date(Month/Year) No history Knee surgery colonoscopy, Dr. Christian howell, [facility], negative, 10 years 2014 left knee arthroscopic surgery 1990 right knee arthroscopic surgery x2 1984 - 1988 Hospitalization History Reason Date(Month/Year) No history major depression, Dr. Velarde 2000
== END 2024-07-09 14:48 | disposition home or self-care (01) ==
LOC: HO.LNP 14:47
PROVIDERS: Visit Provider Internal Medicine Medical Oncology
DX: H00.013 Hordeolum externum right eye, unspecified eyelid (principal)
CPT/HCPCS: 87070; 87077; 87186; 87205